=== PATIENT | female | born 1955 | race Caucasian/White ===

== ENCOUNTER 2016-03-08 14:33 | Emergency (ER) | payer BC, MEDICARE ==
[~2016-03-08] VITALS: Ht 160 cm; Wt 52.9 kg
[2016-03-08] MEDS ORDERED: ACETAMINOPHEN/CODEINE 300MG/30 MG (TYLENOL #3) TABLET PO ONE (15:00)
[2016-03-08] MEDS ORDERED: DEXAMETHASONE 4 MG/ML (DECADRON) 5ml VIAL IM ONE (15:05)
[2016-03-08 16:14] VITALS: BP 164/98
== END 2016-03-08 16:15 | disposition home or self-care (01) ==
LOC: ED 14:35
DX: R09.1 Pleurisy (principal); R07.89 Other chest pain; M06.9 Rheumatoid arthritis, unspecified
CPT/HCPCS: 71020; 96372; 99282; J1100; 99283

== ENCOUNTER → 2016-03-12 | Outpatient (CLI) | payer BC, MEDICARE | LOC: RAD 15:27 | PROVIDERS: ATTEND Family Medicine | DX: R06.00 Dyspnea, unspecified (principal); M06.9 Rheumatoid arthritis, unspecified | CPT/HCPCS: 71275; Q9967 ==

== ENCOUNTER 2016-05-14 14:30 | Outpatient (RCR) | payer BC, MEDICARE ==
--- NOTE | 2016-04-02 11:35 | PT/OT/ST INITIAL EVALUATION ---
Department of Health and Human Services Form Approved Health Care Financing Administration OMB No. [id number] PLAN OF CARE/ASSESSMENT FOR OUTPATIENT REHABILITATION (Complete for Initial Claims Only) 1. PATIENT'S NAME Chelly Wills 2. ACC # [id number] 3. HICN NA 4. REFERRING PHYSICIAN Licha Miles APRN 5. TYPE: PT 6. PROVIDER NO. [id number] 7. PRIOR HOSPITALIZATION NA 8. PRIMARY DX Right shoulder pain, right groin and hip pain and trochanter bursitis. 9. SECONDARY DX Anterior translated glenohumeral head on the right shoulder, as well as tight posterior capsule of right shoulder with right shoulder pain. Trochanter bursitis with weak gluteus medius on the right side. 10. ONSET DATE January 2016 11. REFERRAL DATE March 13, 2016 and March 21, 2016 12. SOC. DATE April 01, 2016 12. TIME OF EVAL 2:37 p.m. 13. CHARGES/UNITS Highly complex evaluation Therapeutic exercise 14. G CODES NA 15. PRIOR LEVEL OF FUNCTION; PERTINENT HISTORY (Prior therapy results, reason for referral.) S: Prior to therapy, the patient did consent to today's evaluation and treatment. The patient is a 60-year-old female referred to us by Licha Miles APRN to address right shoulder pain, right hip and groin pain, and trochanter bursitis. Primary Complaint for shoulder: Patient had an arthroscopic surgery on the right shoulder approximately 3 years ago and they had surgical release of the biceps tendon. She was having relatively pain free range of motion with the shoulder up until about 3 months ago. Now she has started having pain and it is gradually getting worse. She feels this from the shoulder down to the elbow. The pain is sharp occasionally, but it is mostly a dull ache. This patient can't carry bags on this shoulder. She has trouble lifting weight above head or doing functional activities with her arms above 90 degrees. She has difficulty with pushing and pulling with the right shoulder. The patient states that she had quite a bit of relief after her surgery 3 years ago and she doesn't understand why her shoulder has begun to hurting. She states that she has had a bout of sicknesses with her lungs. She has had a recent bout of pleurisy and she states that she has an upper respiratory infection along with this and she has currently been on anti-inflammatories and corticosteroids for these and hasn't noticed any pain relief in her shoulder. Primary Complaint for hip: Lateral hip pain on the right. She said this started in September. She went to her trust manager assistant and he gave her a shot. The shot gave her some relief, but did not last very long. She notices with prolonged walking and at the end of the day she has groin pain as well with this lateral hip pain and she notes that she has tenderness on the inside of her leg. The patient states that she is still fairly active and goes to the gym 3 times a week, but she notices that she has increased pain with increased activity such as walking or stair climbing. She states this pain can reach 8/10 pain, but currently it is around 3/10. Prior level of function: She was able to do normal movements with the right shoulder without pain. She didn't have any painful symptoms at the hip with ambulating. Current level of function: Currently she avoids using it. She avoids any movement. She can't sleep on this shoulder because of the pain. Therapy History: The patient does have a history of therapy for this shoulder before and after surgery of it 3 years ago. Pain level for shoulder: The patient states the maximal pain level is 9/10 and currently it is 1/10. Description of pain for hip: She describes the pain as an ache and just tenderness to palpation at the lateral and medial aspects of the leg. Aggravating factors for shoulder: The patient states using this shoulder aggravates symptoms. hip. Relieving factors for the shoulder: The patient states that icing it makes it feel better. Aggravating factors for hip: Walking and just activities with her lower extremities. Relieving factors for hip: The patient doesn't notice of any factors. Diagnostic tests: The patient has none at this time. Past medical history: She has arthritis, osteoporosis, ulcers, stomach problems, high blood pressure, lung problems and the patient does also have a muscle disease. She currently is getting genetic testing on this to get a specific diagnosis, but she does have a confirmed muscle disease where it is difficult for her to gain and maintain muscle. The patient also has rheumatoid arthritis and receives multiple corticosteroid medications for this as well. With this, this makes it very difficult to increase strength and improve joint level pain that she may be having. Medication list: Vivelle patch, Cymbalta, Lisinopril, prednisone and zolpidem. 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 Activity level: She rates as fair. Overall health rating: The patient rates overall and general health as fair. Patient's goal: The patient's goal for physical therapy is she would like to have no pain in the right hip or shoulder with any activities, such as walking and working out at the gym and gardening. 16. INITIAL ASSESSMENT/SAFETY PRECAUTIONS/MEDICAL COMPLICATIONS (Level of function at start of care. Be specific, use objective measures, list problems.) O: APPEARANCE AND OBSERVATION: The patient doesn't appear to have any changes in gait or asymmetrical patterns. Nothing remarkable with gait mechanics. PALPATION: The patient has no noticeable tenderness at the shoulder other than at the lateral aspect of the glenohumeral head. The patient does have tenderness at the right trochanter and tenderness at the adductors of the right leg. SPECIAL TESTS: Shoulder: Posterior glide at glenohumeral joint is approximately 50% limited. The patient appears to have a stiff posterior capsule. Painful posterior capsule provocation test. Hip: Scours is negative. Flexion, abduction and internal rotation are pain provoking at the tensor fasciae latae tendon. CECILIA test is negative. No reproduction of symptoms. Isaiah is positive. RANGE OF MOTION/FLEXIBILITY: The patient has no limitations in her range of motion bilaterally with her right shoulder. The patient has within normal limits range of motion in all planes of the bilateral hips. STRENGTH: Shoulder: Abduction strength on the right is 3+/5 and painful and on the left is 3+/5. Flexion strength bilaterally is 3+/5. Extension strength is 3+/5 bilaterally. Internal rotation strength is 3/5 bilaterally, but very painful on the right side. External rotation is 3+/5 on the right and is mildly painful and 3/5 on the left. Hip: The patient's abduction strength of the right hip is 3+/5 and on the left it is 3+/5. TODAY'S TREATMENT: After initial evaluation, therapeutic exercise was performed and issued as a HEP. 17. INITIAL POC: (Specify procedures, modalities, short and prison goals) A: PROGNOSIS: Due to a personal health rating of fair, the patient has a fair prognosis for therapy for the shoulder and hip. OUTCOME ASSESSMENT: Shoulder: The patent completed the QuickDASH. She scored a 40.9% disability on this. Hip: The patient filled out the Lower Extremity Functional Index. She scored 51/80. FUNCTIONAL LIMITATIONS: Shoulder: Involves reaching, pulling, lifting above head and any resisted movements with the shoulder range of motion. Hip: The patient has trouble with sleeping on the right side of her hip. She has difficulty ascending and descending stairs, getting out of a car, lifting objects off the ground with her legs, and performing heavy lifting at home. Also putting on shoes and socks is difficult for the patient. INFORMED CONSENT: The diagnosis, prognosis, treatment plan, risks and expected outcome were discussed with the patient and the patient did agree to today's established plan of care for the shoulder and hip. GOALS: 1. The patient to be independent and compliant with home exercise program in 1 week for improved prognosis and increased effectiveness of therapeutic interventions. 2. The patient will have a decrease in maximum shoulder pain in 3 weeks from 9/10 pain to 6/10 pain for increased ability and upper extremity movements during tasks at home and leisure activities in the gym. 3. The patient will improve right hip abduction strength from 3+/5 to 4+/5 in 4 weeks for improved gait mechanics and decreased stress on the hip joint. 4. The patient will improve Lower Extremity Functional Index questionnaire score in 5 weeks from 51/80 to 70/80 for improved functional capacity during activities such as getting out of her car, deep squatting, and performing heavy activities around her house. 5. The patient will improve QuickDASH score from 40.9% disability to 20% disability in 6 weeks for improved functional capacity during upper extremity tasks such as shopping, reaching for cans off the grocery store shelves and opening jars, as well as recreational activities at the gym and functional tasks outside and gardening. P: Plan to treat the patient 2 times per week for 6 weeks in order to address shoulder and hip dysfunction. Treatments include, but are not limited to, ultrasound and iontophoresis for increased tissue extensibility and decrease pain. Manual therapy for increased joint arthrokinematics and increased joint proprioception. Therapeutic exercise for increased strengthening of the upper and lower extremities. Proprioceptive training of the joints and neural reeducation for improved mechanics during movements with the upper and lower extremities. 18. FREQUENCY 2 times a week 19. DURATION 6 weeks 20. FUNCTIONAL LEVEL (End of claim period) 21. PHYSICIAN SIGNATURE ? ON FILE OR ENTER HERE: 22. DATE: I certify the need for these services furnished under this plan of care and if for partial hospitalization. 23. CERTIFICATION FROM THROUGH FORM [id number]
[~2016-05-14 14:30] MED LIST: ACET325T38; ASCO1TAB22 PO; BACL10TA PO; BUSP15TA55 PO; CA C1TAB70 PO; DULO60CA7 PO; ESTR1PAT TOP; FEXO-95 PO; GLUC100016 PO; HYDR200T PO; HYDR2TAB14 PO; LISI5TAB14 PO; MINO100C2 PO; MMT17NA; NIAC500T9 PO; OMEG100T PO; ONDA4TAB8 PO; PRED20TA PO; TIZAN4T PO; ZLP5T PO; ZOLE5INF
== END 2016-06-02 13:19 | disposition home or self-care (01) ==
LOC: PT 14:30
PROVIDERS: ATTEND Nurse Practitioner
DX: M25.511 Pain in right shoulder (principal); R10.31 Right lower quadrant pain; M25.551 Pain in right hip; M70.61 Trochanteric bursitis, right hip